=== PATIENT | female | born 2005 | race Caucasian/White ===

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

== ENCOUNTER 2025-05-01 09:00 | Outpatient (CLI) | payer OTHER, SELFPAY ==
--- OUTSIDE RECORDS SUMMARY | 2025-05-01 09:06 | XMS_ITS | Data Portability ---
Author Organization [facility], Main Office Address [address] [place] [address] Care Team Providers Care Senior Bioinformatics Scientist Name Role Phone ETHAN ULRICH Primary Care Provider Assessment Encounter Date Assessment Date Assessment LastModified by Organization Details LastModified Time 04/26/2024 04/26/2024 18 yo F with - WELL ADULT VISIT - SCHOOL PHYSICAL - IBS D/w pt about her findings and further plan of care. Will do routine labs. Form filled out and given to pt. Routine ear care explained. Diet and exercise explained in detail. Safe sex education given. HM: WWE - At 20 yrs of age. Flu - Pt declined. Tdap - 08/08. Gardasil - Pt had it. F/u PRN/Annually. Annual labs in 05/18. [email or web address] Not available 04/26/2024 17:01:22 Plan of Treatment Reminders Order Date Submit Date Provider Last Modified By Organization Details Last Modified Time Details Appointments None recorded. Lab PPD (purified protein derivative) , skin test 2023 024 [facility], [address] [place] [address], [id number], 4 10:19:54 PPD (purified protein derivative) , skin test 2023 024 [facility], [address] [place] [address], [id number], 4 09:36:53 vitamin B12 + folate, serum or blood [address] (Lab), [address] [place], [address], 4 09:10:09 vitamin D3, 25-hydroxy, serum [address] (Lab), [address] [place], [address], 4 09:10:10 CBC w/ auto diff [address] (Lab), [address] [place], [address], 4 09:10:09 CMP, serum or plasma [address] (Lab), [address] [place], [address], 4 09:10:09 lipid panel, serum [address] (Lab), [address] [place], [address], 4 09:10:09 TSH, serum, reflex free T4 [address] (Lab), [address] [place], [address], 4 09:10:09 urinalysis complete, reflex culture [address] (Lab), [address] [place], [address], 4 09:10:09 Referral None recorded. Procedures None recorded. Surgeries None recorded. Imaging None recorded. Medication Orders Tubersol 5 tub. unit/0.1 mL intradermal injection solution 2023 024 Not available 4 16:18:27 Tubersol 5 tub. unit/0.1 mL intradermal injection solution 2023 024 Not available 14:09:32 Patient TargetsNo targets recorded. Patient InstructionsNo instructions recorded. Reason for Referral None Reported. Results Created Date Observation Date Name Description Value Unit Range Abnormal Flag Note LastModifiedBy Organization Detail LastModifiedTime 05/26/20 24 05/26/2024 PPD (kristin fied prote in deriv ative ), skin test TB negati ve Not Available [facility] [address], [address], 05/24/2024 10:54:35 Result Notes None recorded. Problems Name Problem SNOMED Code Status Onset Date Resolution Date Notes Provider Name and Address Organization Details Recorded Time Irritable bowel syndrome 66818639 Active 2023 Ethan Ulrich MD [address], [address] [employer] 4 16:47:25 Impacted cerumen in right ear 56346435443015 03 Active 2023 Ethan Ulrich MD [address] [address], [place], [address], [employer] 4 16:48:53 Problem Notes None recorded. Medical Equipment None Reported. Allergies No known drug allergies Medications Name Sig Start Date Stop Date Status Note LastModified by Organization Details LastModified Time Tubersol 5 tub. unit/0.1 mL intradermal injection solution Inject 0.1 mL by intraderm al route as directed for 1 day. 2023 active Not Available Not Available Not Avai lable dicyclomine 20 mg tablet 04/26 completed Not Available Not Available Not Available ondansetron 4 mg disintegrat ing tablet 04/26 completed Not Available Not Available Not Available amoxicillin 875 mg-potassiu m clavulanate 125 mg tablet TAKE 1 TABLET BY MOUTH EVERY 12 HOURS 04/26 completed Not Available Not Available Not Available chlorhexidi ne gluconate 0.12 % mouthwash SWISH AND SPIT NIGHTLY FOR 1 MINUTE 04/26 completed Not Available Not Available Not Available Lo Loestrin Fe 1 mg-10 mcg (24)/10 mcg (2) tablet TAKE 1 TABLET BY MOUTH DAILY 04/26 completed Not Available Not Available Not Available Vienva 0.1 mg-20 mcg tablet TK 1 T PO QD 04/26 completed Not Available Not Available Not Available Vitals Date Recorded Body height Body mass index (BMI) Body mass index (BMI) [Percentile] Per age and sex Body weight Body temperature Heart rate Respiratory rate Oxygen saturation Oxygen saturation in Arterial blood by Pulse oximetry Systolic And Diastolic Provider Name and Address Organization Details Last Updated DateTime 160.02 cm 21.3 kg/m2 46 % 34672.4 3 g 98.4 [degF] 68 /min 16 /min 98 % 98 % 108/70 mm[Hg] Bebo Mendoza [employer] 16:36:46 Social History Question Answer Notes LastModified by Organizat ion Details LastModified Time Tobacco Smoking Status Never Smoker Bebo chandra [employer] 04/26/2024 16:55:36 Do You Have An Advance Directive? No Information not available 04/26/2024 Is Blood Transfusion Acceptable In An Emergency? Yes Information not available 04/26/2024 What Is Your Level Of Caffeine Consumption? Occasional Information not available 04/26/2024 What Is Your Code Status? Full Code Information not available 04/26/2024 In The 14 Days Before Symptom Onset, Have You Had Close Contact With A Laboratory-confir med COVID-19 While That Case Was Ill? No Information not available 04/26/2024 In The 14 Days Before Symptom Onset, Have You Had Close Contact With A Person Who Is Under Investigation For COVID-19 While That Person Was Ill? No Information not available 04/26/2024 What Type Of Diet Are You Following? REGULAR Information not available 04/26/2024 What Is The Highest Grade Or Level Of School You Have Completed Or The Highest Degree You Have Received? [id number] Information not available 04/26/2024 How Many Days Of Moderate To Strenuous Exercise, Like A Brisk Walk, Did You Do In The Last 7 Days? 2 Information not available 04/26/2024 Have There Been Any Changes To Your Family Or Social Situation? No Information no t available 04/26/2024 What Is The Fluoride Status Of Your Home? Unknown Information not available 04/26/2024 Are There Any Guns Present In Your Home? No Information not available 04/26/2024 Do You Use Insect Repellent Routinely? No Information not available 04/26/2024 Where Do You Live? SingleLevelHouse Information not available 04/26/2024 Do You Have A Medical Power Of Block Cableman? No Information not available 04/26/2024 How Many Children Do You Have? 0 Information not available 04/26/2024 Do You Have Any Pets? Yes Information not available 04/26/2024 What Is Your Relationship Status? Single Information not available 04/26/2024 Do You Use Your Seat Belt Or Car Seat Routinely? Yes Information not available 04/26/2024 Are You Sexually Active? No Information not available 04/26/2024 Do You Have Smoke And Carbon Monoxide Detectors In Your Home? Yes Information not available 04/26/2024 Are You Passively Exposed To Smoke? No Information no t available 04/26/2024 Are There Any Smokers In Your House? No Information not available 04/26/2024 Do You Participate In Social Media? Yes Information not available 04/26/2024 Do You Use Sunscreen Routinely? Yes Information not available 04/26/2024 Has Tobacco Cessation Counseling Been Provided? No Information not available 04/26/2024 Have You Recently Traveled Abroad? No Information not available 04/26/2024 Are You Currently In School? Yes Information not available 04/26/2024 Do You Have Any Dietary Restrictions? No Information not available 04/26/2024 Sex: Female Functional Status Question Answer Note LastModified by Organizat ion Details LastModified Time Do you use any illicit or recreational drugs? No Information not available 04/26/2024 Do you or have you ever used any other forms of tobacco or nicotine? No Information not available 04/26/2024 What is your level of alcohol consumption? None Information not available 04/26/2024 Are you currently employed? No Information not available 04/26/2024 What is your exercise level? Occasional Information not available 04/26/2024 Mental Status Question Answer Note LastModified by Organization D etails LastModified Time Do you feel stressed (tense, restless, nervous, or anxious, or unable to sleep at night)? [id number] Information not available 04/26/2024 Family History Nothing Reported. Medical History Condition Response BLINDNESS N RHEUMATIC FEVER N KIDNEY STONES N BLADDER PROBLEMS N MRSA N OTHER # 1 N POLIO N LUNG DISEASE/DISORDER N HISTORY OF DRUG ABUSE N RADIATION / CHEMOTHERAPY N COPD N Other # 2 N BLOOD DISEASES N SURGERY N EAR OR HEARING PROBLEMS N MUMPS N SHINGLES N FEMALE PROBLEMS / INFECTIONS N DEPRESSION (INCLUDING POST ) N BOWEL PROBLEMS N FAILED BACK SYNDROME N STROKE/TIA N THYROID DISEASE N ULCERS N BENIGN PROSTATIC HYPERPLASIA N MEASLES N CERVICALGIA N TB SKIN TEST N HYPOTENSION N MYOCARDIAL INFARCTION N PARAPELGIA N OBESITY N GERD/NAUSEA N ANEURYSM N URINARY/BLADDER/KIDNEY PROBLEMS N CORONARY ARTERY DISEASE (CAD) N MENIERE'S DISEASE N Do you have Advance directive? N ADDICTION CONCERNS N ENDOMETRIOSIS N USE OF BLOOD THINNERS N SKIN PROBLEMS N EMPHYSEMA N GASTROINTESTINAL DISORDER N PERIPHERAL ARTERY DISEASE N MUSCLE,JOINT OR BONE PROBLEMS N GASTROINTESTINAL BLEEDING N BLOOD CLOTS N ASTHMA N CATARACTS N Abdominal Pain N ERECTILE DYSFUNCTION N ARTERIAL INSUFFICIENCY N GI PROBLEMS N CHF N Low Testosterone N NEUROPATHY N INFERTILITY N AIDS/HIV N FRACTURES N CHEMOTHERAPY / RADIATION N VISION/EYE PROBLEMS N LIVER DISEASE N HYPERTENSION N TOURETTE'S N ANXIETY DISORDER N BLOOD TRANSFUSION N ANEMIA/BLOOD DISORDER N CHRONIC EAR INFECTIONS N BRONCHITIS N TUBERCULOSIS N GLAUCOMA N FOOT PROBLEM N DIVERTICULITIS N SLEEP APNEA N CHICKENPOX N ALLERGIES/HAYFEVER N BACK INJECTIONS N INFECTIOUS DISEASE N PROSTATE N HEART ARRHYTHMIA N ESRD N INSOMNIA N HIGH CHOLESTEROL / HYPERLIPIDEMIA N EYE PROBLEMS N HYPERTHYROIDISM N PVD N EATING DISORDER N EDEMA N CHRONIC PAIN SYNDROME N CONSTIPATION N CAROTID BLOCKAGE N BACK / NECK PROBLEMS N HAVE YOU BEEN HOSPITALIZED OR SEEN IN [facility] IN THE PAST YEAR ? N ATHEROSCLEROSIS N BREAST PROBLEMS N DIALYSIS N POLYCYSTIC OVARIES N ECZEMA N FIBROMYALGIA N OSTEOPOROSIS N ARTHRITIS N NO SIGNIFICANT PAST MEDICAL HISTORY N APPENDICITIS N DIABETES, TYPE N BAD TEETH N VON WILLIBRAND'S DISEASE N HEARTBURN / REFLUX N ADD/ADHD N AUTISM SPECTRUM DISORDER (ASD) N POST LAMINECTOMY SYNDROME N HEPATITIS / LIVER DISEASE N PULMONARY DISEASE N GOUT N SLEEP DISORDER N ALZHEIMER'S DISEASE N PAIN N DEMENTIA N HERPES N SEIZURES/EPILEPSY N HEADACHES/MIGRAINES N VASCULAR DISEASE N PACEMAKER N DIZZINESS N KIDNEY DISEASE N HEART DISEASE/HEART PROBLEMS N SCARLET FEVER N MULTIPLE SCLEROSIS N MENTAL DISORDER/ILLNESS N DEVELOPMENTAL OR BEHAVIORAL DISORDERS N NEUROPSYCHOLOGICAL N CANCER: SPECIFY N CARDIAC ARRHYTHMIA N PNEUMONIA N ATRIAL FIBRILLATION N Gall Stones N PULMONARY EMBOLISM N AUTOIMMUNE DISEASE N Gynecological History Statement/Question Response Menses Monthly Y Age at Menarche 11 Flow Moderate Date of LMP 04/21/2024 Obstetrics History GPAL:G 0 P 0 0 0 0 Past Encounters Encounter ID Performer Location Encounter Start Date Encounter Closed Date Diagnosis/Indication Diagnosis SNOMED-CT Code Diagnosis ICD10 Code Diagnosis Note [id number] Ethan Ulrich MD [address] [address] 04/26/2024 16:26:42 04/26/2024 17:02:37 Adult health examination 702499435 Z00.00 Irritable bowel syndrome 57921638 K58.9 History an d physical examination, [facility] 49224488 Z02.0 Impacted c erumen in right ear 8305712440 301886 H61.21 [id number] Ethan Ulrich MD [address] [address] 05/10/2024 10:47:11 05/10/2024 11:26:10 History and physical examination, [facility] 43152311 Z02.0 [id number] Ethan Ulrich MD [address] [address] 05/24/2024 10:46:18 05/24/2024 12:03:21 History and physical examination, [facility] 01774996 Z02.0 Health Concerns Section Related Observation LastModified by Organization Detai ls LastModified Time None Recorded Concern Status LastModified by Organization Details LastModified Time None Recorded Advance Directives Directive N: Payers Insurance Date Sequence Insurance Name Policy Number Policy Pierce Covered Member ID Pierce Member ID Guarantor Name 05/29/2024 1 [facility] [id number] [place] Braxton [id number] Nancy Laider 05/10/2024 1 [facility] - DOS PRIOR TO 2021 (MEDICAID REPLACEMENT - HMO) Geneva Fox [id number] Nancy Sharif Notes Date Note Type Note Provider Name and Address Organization Details Recorded Time 04/26/2024 text/html New pt visit. 18 yo F is here to establish her care. Pt was seeing PCP at [facility] in the past. Doing overall well. 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 Pt has IBS and has seen GI at [facility] for it. Doing overall better with it. Ethan Ulrich MD [address] [place] [address], [address] [address], [place], [address], [place] [facility] [employer] 04/26/2024 17:01:36 OBGyn Episode No OBEpisode recorded.
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
--- OUTSIDE RECORDS SUMMARY | 2025-05-01 09:06 | XMS_ITS | Clinical Summary ---
Author Organization [facility] Address [address] [place] [id number] Care Team Providers Care Scorer Single Name Role Phone Ruddy Harper MD Primary Care Provider [phone] Allergies No known active allergies Medications dicyclomine (BENTYL) 20 MG tablet Take 1 tablet (20 mg total) by mouth every 6 (six) hours. 20 tablet 3 Active ondansetron (ZOFRAN-ODT) 4 MG disintegrating tablet Take 1 tablet (4 mg total) by mouth every 8 (eight) hours as needed for Nausea. 20 tablet 3 Active Social History Tobacco Use Types Packs/Day Years Used Date Smoking Tobacco: Never Smokeless Tobacco: Never Alcohol Use Standard Drinks/Week Comments Never 0 (1 standard drink = 0.6 oz pur e alcohol) AUDIT-C Answer Date Recorded Q1: How often do you have a drink containing alc ohol? Never 05/22/2021 Average Number of Drinks Not on file 021 Frequency of Binge Drinking Not on file 04/25 Comments No Sex and Gender Information Value Date Recorded Sex Assigned at Not on file Legal Sex Female 8:45 PM CDT Gender Identity Not on file Sexual Orientation Not on file Last Filed Vital Signs Vital Sign Reading Time Taken Comments Blood Pressure 110/66 10/09/2023 4:32 PM [facility] [employer] Pulse 59 10/09/2023 4:16 PM [employer] [employer] Temperature 37.1 C (98.8 F) 10/09/2023 4:16 PM [employer] Respiratory Rate 18 10/09/2023 4:16 PM [employer] Oxygen Saturation 100% 10/09/2023 4:16 PM [employer] Inhaled Oxygen Concentration - - Weight 48.1 kg (106 lb) 10/09/2023 4:16 PM [employer] Height 160 cm (5' 3) 10/09/2023 4:16 PM [employer] Body Mass Index 18.78 10/09/2023 4:16 PM [employer] [employer] Plan of Treatment Health Maintenance Due Date Last Done Comments Annual Physical 2007 Meningococcal B Vaccine (2 o f 2 - Bexsero SCDM 2-dose series) 04/07/2021 10/07/2020 Hepatitis C 2022 DTaP, Tdap and Td Vaccines ( 3 - Tdap) 2023 02/10/2005, 2004 Hepatitis B Vaccines (1 of 3 - 19+ 3-dose series) 2023 COVID-19 Vaccine (1 - 2023-2 5 season) 2024 Pneumococcal Vaccine: Pediatrics (0 to 5 Years) and At-Risk Patients (6 to 49 Years) Aged Out 04/13/2005, 02/10/2005, 2004 No longer eligible based on patient's age to complete this topic HPV Vaccines Completed 06/21/2019, 07/06/2017 Meningococcal Vaccine Completed 10/07/2020 , 07/06/2017 RSV Immunizations Under 20 Months Aged Out No longer eligible b ased on patient's age to complete this topic Insurance [facility] Care Teams Scorer Single Relationship Specialty Start Date End Date Ruddy Harper MD [address] [place] [address] PCP - General PEDIATRICS 05/22/21
[2025-05-01 10:16] LABS: Beta HCG Quantitative < 2.39 mIU/ML
== END 2025-05-01 09:01 | disposition home or self-care (01) ==
LOC: ANHLAB 09:02
PROVIDERS: PCP Family Medicine; Visit Provider Student in an Organized Health Care Education/Training Program
DX: Z30.40 Encounter for surveillance of contraceptives, unspecified (principal)
CPT/HCPCS: 36415; 84702